=== PATIENT | female | born 1970 | race Caucasian/White ===

== ENCOUNTER → 2019-10-31 | Outpatient (CLI) | payer OTHER, SELFPAY ==
[2019-10-31 09:41] VITALS: BMI 26.2
[2019-11-04 15:58] LABS: HPV APTIMA, High Risk Negative (Negative)
== END | disposition home or self-care (01) ==
PROVIDERS: PCP Student in an Organized Health Care Education/Training Program; Referring Provider Obstetrics & Gynecology; Visit Provider Obstetrics & Gynecology
DX: Z12.4 Encounter for screening for malignant neoplasm of cervix (principal)
CPT/HCPCS: 87624; 88175; G0145

== ENCOUNTER → 2020-02-19 11:51 | Outpatient (CLI) | payer OTHER, SELFPAY ==
[2019-10-31 09:41] VITALS: BMI 26.2
--- NOTE | 2020-02-19 12:30 | BI_ITS ---
MAMMOGRAPHY - BILATERAL SCREENING REASON FOR EXAM: Female, 49 years old. Routine annual screening examination. PERTINENT HISTORY: Non-contributory. TECHNIQUE: Digital bilateral breast fernando (3D mammographic acquisition) in the CC and MLO projections. 2-D mediolateral oblique (MLO) and craniocaudad (CC) views of both breasts were obtained. CAD: Full Field Digital Mammography with Computer Added Detection was performed. COMPARISON: Comparison is made with prior abdomen examination dated 02/05/2019. FINDINGS: Breast Composition: The breasts are heterogeneously dense, which may obscure small masses. There are no dominant masses or suspicious calcifications. No other significant abnormalities are identified. There has been no significant change since the prior study. BI/SCREEN MAMM (CAD) W/FERNANDO BILAT IMPRESSION: Stable bilateral screening mammogram. Yearly follow-up mammogram recommended. (A) ASSESSMENT CATEGORY: BIRADS Category 1: Negative. A letter regarding these results will be sent to the patient by the facility within 30 days. Approximately 10% of breast cancers are not detected by mammography. A normal mammogram should not delay biopsy of a clinically suspicious abnormality. [id number] Electronically Signed: Peña Penny, at 13:47 EDT , Service support ,
== END ==
PROVIDERS: PCP Student in an Organized Health Care Education/Training Program; Referring Provider Obstetrics & Gynecology; Visit Provider Obstetrics & Gynecology
DX: Z12.31 Encounter for screening mammogram for malignant neoplasm of breast (principal)
CPT/HCPCS: 77063; 77067

== ENCOUNTER → 2021-02-20 09:51 | Outpatient (CLI) | payer OTHER, SELFPAY ==
[2020-10-31 10:41] VITALS: BMI 26.2
--- NOTE | 2021-02-20 09:54 | BI_ITS ---
MAMMOGRAPHY - BILATERAL SCREENING 3-D TOMOSYNTHESIS REASON FOR EXAM: Female, 50 years old. screeninng PERTINENT HISTORY: No significant family history. TECHNIQUE: 2-D mammograms and 3-D Tomosynthesis of the breast (s) were performed. CAD was performed. COMPARISON: 02/19/2020 FINDINGS: The breast composition is composed of scattered fibroglandular density. Scattered benign calcifications are seen. No dense spiculated masses or suspicious microcalcifications are identified. No architectural distortion is identified. There is no skin thickening or retraction. There has been no significant change since the prior study. BI/SCRN MAMM (CAD)W/FERNANDO BILAT IMPRESSION: No mammographic signs of malignancy. Routine yearly mammograms recommended. ASSESSMENT CATEGORY: BIRADS Category 1: Negative. A letter regarding these results will be sent to the patient by the facility within 30 days. FOLLOW UP RECOMMENDATION: Yearly follow up mammogram recommended. (A) Approximately 10% of breast cancers are not detected by mammography. A normal mammogram should not delay biopsy of a clinically suspicious abnormality. Electronically Signed: Yrn Wang MD at 10:50 EDT Tel , Service support ,
== END ==
PROVIDERS: PCP Student in an Organized Health Care Education/Training Program; Referring Provider Obstetrics & Gynecology; Visit Provider Obstetrics & Gynecology
DX: Z12.31 Encounter for screening mammogram for malignant neoplasm of breast (principal)
CPT/HCPCS: 77063; 77067

== ENCOUNTER → 2023-01-15 | Outpatient (CLI) | payer OTHER, SELFPAY | END | disposition home or self-care (01) | LOC: OPBI 11:01 | PROVIDERS: PCP Student in an Organized Health Care Education/Training Program; Referring Provider Obstetrics & Gynecology; Visit Provider Obstetrics & Gynecology | DX: Z00.00 Encounter for general adult medical examination without abnormal findings (principal) ==

== ENCOUNTER → 2023-07-12 | Outpatient (CLI) | payer OTHER, SELFPAY ==
--- NOTE | 2023-07-12 09:12 | BI_ITS ---
MAMMOGRAPHY - BILATERAL SCREENING REASON FOR EXAM: Female, 52 years old. Routine annual screening examination. PERTINENT HISTORY: Non-contributory. TECHNIQUE: Digital bilateral breast fernando (3D mammographic acquisition) in the CC and MLO projections. 2-D mediolateral oblique (MLO) and craniocaudad (CC) views of both breasts were obtained. CAD: Full Field Digital Mammography with Computer Added Detection was performed. COMPARISON: Comparison is made with prior outside examination dated May 07, 2022. FINDINGS: Breast Composition: The breasts are heterogeneously dense, which may obscure small masses. Questionable faint nodular density seen on the craniocaudad view in the deep medial portion of the left breast. The patient will be recalled for additional views including compression spot views of the left breast as well as 90 degree lateral view No other significant abnormalities are identified. BI/SCRN MAMM (CAD)W/FERNANDO BILAT IMPRESSION: Asymmetrical density seen on the cranial cavity of view in the deep medial portion of the left breast. The patient will be recalled for additional views including compressive craniocaudad views and 90 degree lateral view of the left breast. Recall Side: Left Breast ASSESSMENT CATEGORY: BIRADS Category 0: Incomplete. Need additional imaging evaluation. A letter regarding these results will be sent to the patient by the facility within 30 days. Approximately 10% of breast cancers are not detected by mammography. A normal mammogram should not delay biopsy of a clinically suspicious abnormality. [id number] Electronically Signed: Peña Penny MD at 10:50 EST ,
--- OUTSIDE RECORDS SUMMARY | 2023-07-12 09:34 | XMS RPT_ITS | CCD ---
Author Name Unknown Address [address] [place] [address] Organization [facility] Care Team Providers Care Cad Programmer Name Role Phone Yola Christianson MD Unavailable [phone] Unruly Mcgrath DO Primary Care Provider Unruly Mcgrath DO Primary Care Provider Unruly Mcgrath DO Primary Care Provider UNRULY MCGRATH Primary Care Unavailable SHORTY RUIZ Attending Unavailable Medications Current Medications Medication Drug Class(es) Dates Sig (Normalized) Sig (Original) cyclobenzaprine hydrochloride 10 mg oral tablet (5 sources) Muscle Relaxant Start: 03-30-2022 End: 04-29-2022 take 1 tablet by mouth three times daily as needed for muscle spasms cyclobenzaprine (FLEXERIL) 10 mg tablet Indications: Costochondral chest pain Take 1 tablet by mouth three times daily as needed for muscle spasm. 30 tablet 0 03/30/2022 04/29/2022 Active Completed/Discontinued Medications Medication Drug Class(es) Dates Sig (Normalized) Sig (Original) [id number] 200 actuat albuterol 0.09 mg/actuat metered dose inhaler (20 sources) beta2-Adrenergic Agonist Start: 12-05-2020 End: 04-11-2023 albuterol (PROVENTIL) 2.5 mg /3 mL (0.083 %) nebulizer solution Indications: Asthma, exercise induced , Asthma, moderate persistent, poorly-controlled inhale contents of 1 vial in nebulizer OVER 5 TO 15 MINUTES every 4 hours if needed for wheezing or shortness of breath 75 mL 11 04/11/2023 Active Problems Active Problems Problem Classification Problem Date Documented Da te Episodic/Chronic Adjustment disorders (2 sources) Stress; Translations: [Reaction to severe stress, unspecified] Chronic Anxiety disorders (6 sources) Insomnia disorder related to another mental disorder; Translations: [Anxiety disorder, unspecified] Onset: 07-13-2022 Chronic Asthma (20 sources) Exercise-induced asthma; Translations: [Exercise induced bronchospasm] Onset: 04-27-2015 Chronic Nonspecific chest pain (1 source) Anterior chest wall pain; Translations: [Other chest pain] Episodic Nutritional deficiencies (1 source) Vitamin D deficiency; Translations: [Vitamin D deficiency, unspecified] Chronic Other connective tissue disease (1 source) Spasm; Translations: [Other muscle spasm] Episodic Other female genital disorders (2 sources) Abnormal uterine and vaginal bleeding, unspecified; Translations: [Abnormal uterine and vaginal bleeding, unspecified] Onset: 01-07-2017 01-07-2017 Chronic Other non-traumatic joint disorders (3 sources) Pain in left knee; Translations: [Pain in joint, lower leg] Episodic Other screening for suspected conditions (not mental disorders or infectious disease) (2 sources) Patient encounter status; Translations: [Encounter for screening mammogram for malignant neoplasm of breast] Episodic Past or Other Problems Problem Classification Problem Date Documented Da te Episodic/Chronic Other skin disorders (20 sources) Actinic keratosis; Translations: [Actinic keratosis] Onset: 04-01-2019 04-01-2019 Episodic Other upper respiratory disease (20 sources) Vocal cord dysfunction; Translations: [Other diseases of vocal cords] Onset: 01-30-2016 01-30-2016 Episodic Results Test Name Value Interpretation Reference Range Facil ity Vital Signs Date Time Vital Sign Value Performing Clinician Malik rodriguez 03-30-2022 10:47-0400 Body weight 64.14 kg Doris Rebolledo APRN.FERMENTING CELLARS RECEIVER Work Phone: [facility] 03-30-2022 10:47-0400 Diastolic blood pressure 60 mm[Hg] Doris Rebolledo CEMENTER.FERMENTING CELLARS RECEIVER Work Phone: [facility] 03-30-2022 10:47-0400 Heart rate 70 /min Doris Rebolledo CEMENTER.FERMENTING CELLARS RECEIVER Work Phone: [facility] 03-30-2022 10:47-0400 Respiratory rate 14 /min Doris Rebolledo CEMENTER.FERMENTING CELLARS RECEIVER Work Phone: [facility] 03-30-2022 10:47-0400 SaO2% (BldA) [Mass fraction] 100 % Dorischarles Rebolledo CEMENTER.FERMENTING CELLARS RECEIVER Work Phone: [facility] 03-30-2022 10:47-0400 Systolic blood pressure 100 mm[Hg] Doris Rebolledo CEMENTER.FERMENTING CELLARS RECEIVER Work Phone: [facility] 01-19-2022 10:00-0400 Body height 154.9 cm Namita Infopia PA-C Work Phone: [facility] 01-19-2022 10:00-0400 Body weight 63.96 kg Namita Samaniego PA-C Work Phone: [facility] 12-06-2021 10:43-0400 Body height 155.5 cm Unruly Mcgrath DO Work Phone: [facility] 12-06-2021 10:43-0400 Body temperature 97.59 [degF] Unruly Mcgrath DO Work Phone: [facility] 12-06-2021 10:43-0400 Body weight 63.96 kg Unruly Mcgrath DO Work Phone: [facility] 12-06-2021 10:43-0400 Diastolic blood pressure 80 mm[Hg] Unruly Mcgrath DO Work Phone: [facility] 12-06-2021 10:43-0400 Heart rate 60 /min Unruly Mcgrath DO Work Phone: [facility] 12-06-2021 10:43-0400 Respiratory rate 12 /min Unruly Mcgrath DO Work Phone: [facility] 12-06-2021 10:43-0400 Systolic blood pressure 112 mm[Hg] Unruly Mcgrath DO Work Phone: [facility] 01-07-2017 15:52-0400 BMI (Body Mass Index) 27.43 kg/m2 Yola Christianson MD [facility] 01-07-2017 15:52-0400 BP Diastolic 77 mm[Hg] Yola Christianson MD [facility] 01-07-2017 15:52-0400 BP Systolic 118 mm[Hg] Yola Christianson MD [facility] 01-07-2017 15:52-0400 Height 157.48 cm Yola Christianson MD [facility] 01-07-2017 15:52-0400 Pulse (Heart Rate) 79 /min Yola Christianson MD [facility] 01-07-2017 15:52-0400 Respiratory Rate 18 /min Yola Christianson MD [facility] 01-07-2017 15:52-0400 Weight 68.04 kg Yola Christianson MD [facility] Encounters Encounter Date Encounter Type Care Provider Facility Start: 06-12-2023 ambulatory Unruly mcgraw DO Work Phone: [facility] [place] Start: 04-11-2023 Refill Unruly mgcraw DO Work Phone: [facility] [place] Procedures Date Procedure Procedure Detail Performing Clinician Start: 05-07-2022 Mammography Mammograph y Coordinator Start: 03-30-2022 Ecg routine ecg w/le ast 12 lds w/i&r [facility] Provider Start: 01-19-2022 Radiologic exam knee complete 4/more views Namita Samaniego PA-C Work Phone: Start: 12-06-2021 Adult depression screening assessment Unruly Mcgrath DO Work Phone: Start: 02-20-2021 Mammography Unruly Bowser rison DO Work Phone: Start: 12-30-2020 Colonoscopy Unruly trinidad DO Work Phone: Start: 04-28-2015 Lipid 1996 panel - S anju or Plasma Unruly Mcgrath DO Work Phone: Plan of Treatment Date Care Activity Detail Author Start: 12-30-2030 Colonoscopy [address] [facility] Start: 12-30-2030 COLORECTAL CANCER SCREENING COLORECTAL CANCER SCREENING [facility] Start: 12-30-2030 Screening for malign ant neoplasm of colon [facility] Start: 01-28-2029 Urine microalbumin profile [facility] Start: 10-30-2024 HPV TESTING HPV TESTING [facility] Start: 10-30-2024 PAP TESTING PAP TESTING [facility] Start: 10-30-2024 Screening for malign ant neoplasm of cervix [facility] Start: 09-06-2024 DIABET[facility]CREEN [facility] Start: 09-06-2024 Diabetes Screening Diabetes Screenin g [facility] Start: 05-07-[address] [facility] Start: 05-07-2023 Screening for malign ant neoplasm of breast Mammogram Screening [facility] Start: 03-30-2023 ANNUAL PCP TEAM IDENTITY MANAGEMENT DEVELOPER KYRA DISEASE VISIT ANNUAL PCP TEAM CHRONIC DISEASE VISIT [facility] Start: 02-22-2023 Influenza vaccination C [facility] Start: 12-21-2022 Influenza vaccination INFLUENZA (#1) [facility] Immunizations Immunization Date Immunization Notes Care Provider Fa mohit 01-30-2021 zoster vaccine recombinant Unruly Mcgrath DO Work Phone: [facility] Work Phone: 12-05-2020 zoster vaccine recombinant Unruly Mcgrath DO Work Phone: [facility] Work Phone: 01-28-2019 tetanus toxoid, redu jonh diphtheria toxoid, and acellular pertussis vaccine, adsorbed Unruly Mcgrath DO Work Phone: [facility] Work Phone: Payers Date Payer Category Payer Unknown [id number] 2013 Unknown MMO MMO [employer] [id number] 2013-Present [phone] [address] [place] [address] PPO [id number] 2013 Unknown [id number] Social History Date Type Detail Facility Start: 03-30-2022 Tobacco smoking stat us NJIS Never smoked tobacco [facility] Start: 09-06-2021 End: 11-11-2022 Alcohol intake Current drinker of alcohol (finding) [facility] Start: 09-06-2021 End: 07-07-2022 Alcohol intake [facility] Start: 10-24-2019 End: 01-20-2020 History SDOH Alcohol Frequency [address] [facility] Start: 10-24-2019 End: 01-20-2020 History SDOH Alcohol Std Drinks [address] [facility] Start: 12-30-2020 History SDOH Alcohol Comment every night. [facility] Start: 10-24-2019 End: 01-20-2020 History SDOH Social Connections Phone [address] [facility] Start: 10-24-2019 History SDOH Social Connections Living [address] [facility] Start: 10-24-2019 History SDOH Physica l Activity DPW [address] [facility] Start: 01-20-2020 History SDOH Physica l Activity MPS [address] [facility] Start: 10-24-2019 End: 06-28-2021 History SDOH Transport Med [address] [facility] Start: 01-20-2020 Education [address] [facility] Start: 1970 Sex Assigned At Female C [facility] Start: 11-26-2021 End: 03-30-2022 Exposure to SARS-CoV-2 (event) Not sure [facility] Work Phone: Start: 03-30-2022 Tobacco use and exposure Smokeless tobacco non-user [facility] Start: 05-04-2022 End: 07-07-2022 Tobacco use panel [facility] Adult Depression Screening Assessment [address] [facility] Start: 11-30-2020 Gender identity Identifies as female gender (finding) [facility] Start: 11-30-2020 Sexual orientation Heterosexual (fin ding) [facility] How often to you hav e a drink containing alcohol? 2-3 time sa week [facility] How many standard drinks containing alcohol do you have on a typical day? 1 or [address] [facility] How hard is it for y ou to pay for the very basics like food, housing, medical care, and heating Not very hard [facility] Do you feel stress - tense, restless, nervous, or anxious, or unable to sleep at night because your mind is troubled all the time - these days [OSQ] Rather much [facility] (I/We) worried whemargret er (my/our) food would run out before (I/we) got money to buy more. Never true [facility] In the past 12 month s, was there a time when you were not able to pay the mortgage or rent on time? No [facility] Clinical Notes 11-05-2016 to 06-12-2023 Telephone Encounter - Vivaine Christine PA-C - 04/11/2023 11:49 AM EDTTelephone Encounter - Ledy Grider LPN - 04/11/2023 8:54 AM Ara Ruiz APRN.KAMARI - 07/13/2022 3:31 PM EST Note Date & Type Note Facility 06-12-2023 Note Patient Outreach (IN [facility]) CORNELIO NAPIER ([id number]) 1970 F Date Time Provider Department 06/12/23 UNRULY MCGRATH During your visit today, we recorded the following information about you: Allergies As of Date: 06/12/2023 (No Known Allergies) Date Reviewed: 07/13/2022 Reviewed by: Kirsty Colvin LPN - Fully Assessed Visit Diagnosis:Encounter for screening mammogram for breast cancer [Z12.31] Order(s):[facility] SCREENING W FERNANDO [[id number]] Order #: [id number] FUTURE Prescriptions as of 06/17/2023 - benzonatate (TESSALON PERLE) 100 mg capsule Take 1 capsule by mouth three times a day as needed. - guaiFENesin (MUCINEX) 600 mg 12 hr tablet Take 2 tablets by mouth two times a day. - albuterol (PROVENTIL) 2.5 mg /3 mL (0.083 %) nebulizer solution inhale contents of 1 vial in nebulizer OVER 5 TO 15 MINUTES every 4 hours if needed for wheezing or shortness of breath - albuterol HFA (VENTOLIN HFA) 90 mcg/actuation inhaler Inhale 2 Puffs as instructed every 4 hours as needed for wheezing/shortness of breath. - fluticasone-salmeterol (ADVAIR, WIXELA) 250-50 mcg/dose inhaler Inhale 1 Puff as instructed two times a day. - fluticasone (FLONASE) 50 mcg/actuation nasal spray Use 2 Sprays in each nostril once daily. Rinse mouth after use. - cephALEXin (KEFLEX) 500 mg capsule Take 1 capsule by mouth once daily as needed. Following intercourse - montelukast (SINGULAIR) 10 mg tablet Take 1 tablet by mouth daily at bedtime. - escitalopram oxalate (LEXAPRO) 10 mg tablet take 1 tablet by mouth once daily - Norethindrone-Eth Estradiol (OVCON-35) 0.4-35 mg-mcg per tablet Take 1 tablet by mouth once daily. - ibuprofen (MOTRIN) 600 mg tablet Take 1 tablet by mouth every 6 hours as needed. - FERROUS SULFATE (IRON ORAL) Take by mouth once daily. - Nebulizer 1 Device every 4 hours as needed (dyspnea). J45.4, NEBULIZER FOR HOME USE. 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 Requested Prescriptions Signed Prescriptions Disp Refills albuterol (PROVENTIL) 2.5 mg /3 mL (0.083 %) nebulizer solution 75 mL 11 Sig: inhale contents of 1 vial in nebulizer OVER 5 TO 15 MINUTES every 4 hours if needed for wheezing or shortness of breath albuterol HFA (VENTOLIN HFA) 90 mcg/actuation inhaler 36 g 3 Sig: Inhale 2 Puffs as instructed every 4 hours as needed for wheezing/shortness of breath. fluticasone-salmeterol (ADVAIR, WIXELA) 250-50 mcg/dose inhaler 1 Each 5 Sig: Inhale 1 Puff as instructed two times a day. fluticasone (FLONASE) 50 mcg/actuation nasal spray 3 Each 3 Sig: Use 2 Sprays in each nostril once daily. Rinse mouth after use. Viviane Christine PA-C documented in this encounter [facility] 04-11-2023 Miscellaneous Notes marietta- 03/30/22 Nov--nothing scheduled Last refill--07/10/21 90 with 2 refills Last labs--09/06/21 documented in this encounter [facility] 03-04-2023 Miscellaneous Notes Patient has been identified by name and date of : Patient phones for refill(s): Requested Prescriptions Pending Prescriptions Disp Refills cephALEXin (KEFLEX) 500 mg capsule 20 capsule 2 Sig: Take 1 capsule by mouth once daily as needed. Following intercourse Date of last office visit in primary care: 03/30/22 Last 2 Encounter Wt Readings: Date: Wt: 03/30/2022 64.1 kg (141 lb 6.4 oz) 01/19/2022 64 kg (141 lb) Previous labs/tests for medication: Not applicable Please advise. Thank you. Niesha Wayne LPN documented in this encounter [facility] 01-02-2023 Miscellaneous Notes Patient has been identified by name and date of : Patient phones for refill(s): Requested Prescriptions Pending Prescriptions Disp Refills montelukast (SINGULAIR) 10 mg tablet 90 tablet 3 Sig: Take 1 tablet by mouth daily at bedtime. Date of last office visit in primary care: 03/30/22 Last 2 Encounter Wt Readings: Date: Wt: 03/30/2022 64.1 kg (141 lb 6.4 oz) 01/19/2022 64 kg (141 lb) Previous labs/tests for medication: Not applicable Please advise. Thank you. Niesha Wayne LPN documented in this encounter [facility] 10-11-2022 Miscellaneous Notes Last appointment: 09/07/2022 documented in this encounter [facility] 07-13-2022 Note HNO ID: [id number] Author: Shorty Ruiz APRN.FERMENTING CELLARS RECEIVER Service: ? Author Type: Nurse Practitioner Type: Progress Notes Filed: 07/20/2022 10:19 PM Note Text: PSYC FOLLOW UP - PSYCHIATRIC PROGRESS NOTE DIAGNOSIS: Chronic PTSD None GAF: -70-61 Some mild symptoms or some difficulty in social, occupational, or school functioning, but generally functioning pretty well. TREATMENT PLAN: Continue Lexapro at the same dose. Increase Hydroxyzine dose at bedtime to see if it helps more with her sleep difficulties. Continue trauma focused therapy. Follow up in 2 months The effects and side effects of all the medications were reviewed in detail with the patient. She is in agreement with the treatment plan and aware to reach out with any questions, concerns, or worsening of symptoms prior to the next appointment. CC: Follow up regarding her anxiety and sleep With the patient consent, visit was performed virtually. HPI: Cornelio Napier is a 51 year old Female with a history of PTSD presenting today for follow-up. Date of last visit: 06/08/2022 Plan from last visit: Restart and take Lexapro in the morning so that it does not impact her sleep. Utilize hydroxyzine to help with her sleep difficulties. Continue to engage in trauma focused therapy weekly. Follow up in 4 to 6 weeks. Today Cornelio shares that she has been doing okay. She has noticed an improved mindset since she went on vacation during . Has tolerated Lexapro better during the day. She has tried hydroxyzine but only at 25 mg dose. She is willing to try a higher dose of the hydroxyzine to address her sleep. Currently she feels that anxiety is more manageable with the current dose of Lexapro. She has not recently been triggered by her ex. She has been engaged in trauma focused therapy weekly. So far she has met with the therapist 3 times. Has an appointment next . She has been connecting well with the therapist. Denies any concerns with physical health. She takes care of herself and works out. Interval Progress: Improved Risks and benefits of the medication, including any black box warnings, were discussed with the patient. Social History: See HPI PATIENT DATA: Generalized Anxiety Disorder Scale (YADIRA-7) YADIRA - 7 SCORES 04/27/2022 06/08/2022 YADIRA-7 Score 17 13 (0-4) minimal anxiety, (5-9) mild anxiety, (10-14) moderate anxiety, (15-21) severe anxiety Patient Health Questionnaire (PHQ-9) PHQ-9 04/27/2022 06/08/2022 07/13/2022 Score 12 11 9 (0-4) minimal depression, (5-9) mild depression, (10-14) moderate depression, (15-19) moderately severe depression, (20-27) severe depression ROS: General: Negative for fever, malaise, unintentional weight loss HEENT: Negative for recent changes in vision or hearing, no nasal drainage Respiratory: Negative for cough, wheezing or SOB Cardiovascular: Negative for chest pain GI: Negative for nausea, vomiting, change in bowel habits MUSCULOSKELETAL: Negative for acute back or joint pain SKIN: Negative for rash NEURO: Negative for headaches, seizures, focal neurological deficits All other systems negative. VITAL SIGNS: BP Temp Pulse Resp SpO2 MENTAL STATUS EXAMINATION: Appearance: Appropriately groomed, appears stated age Behavior: Appropriately engaged Psychomotor: No psychomotor agitation Cognition Level of Consciousness: Awake and alert. No fluctuation in wakefulness. Orientation: Grossly oriented Memory: Intact Attention/Concentration: Good Fund of Knowledge: Able to demonstrate an awareness of current events. Mood: Mildly anxious Affect: Congruent to mood Speech/Language: Appropriate tone, prosody, thomas, phonetics, and syntax Thought Form: Goal-directed. No loosening of associations. Thought Content: No delusions noted or endorsed. Perceptual Disturbances: Did not appear to respond to auditory stimuli. Safety: Suicidal Ideations: No suicidal ideation, intent or plan. Homicidal Ideations: No homicidal ideation, intent or plan. Insight: Appropriate Judgment: Appropriate I spent a total of 28 minutes on the date of the service which included preparing to see the patient, [id number] patient care, completing clinical documentation, and counseling and educating the patient/family/caregiver, ordering medications/labs. Shorty Ruiz APRN.FERMENTING CELLARS RECEIVER July 13, 2022 3:31 PM This note was partially generated using [employer] voice recognition system. Note was reviewed for accuracy. There may be minor misspellings or grammar miscues with [employer] voice recognition. [facility] 07-13-2022 History of Present illness Narrative Images from the original note were not included. PSYC FOLLOW UP - PSYCHIATRIC PROGRESS NOTE DIAGNOSIS: Chronic PTSD None GAF: -70-61 Some mild symptoms or some difficulty in social, occupational, or school functioning, but generally functioning pretty well. TREATMENT PLAN: Continue Lexapro at the same dose. Increase Hydroxyzine dose at bedtime to see if it helps more with her sleep difficulties. Continue trauma focused therapy. Follow up in 2 months The effects and side effects of all the medications were reviewed in detail with the patient. She is in agreement with the treatment plan and aware to reach out with any questions, concerns, or worsening of symptoms prior to the next appointment. CC: Follow up regarding her anxiety and sleep With the patient consent, visit was performed virtually. HPI: Cornelio Napier is a 51 year old Female with a history of PTSD presenting today for follow-up. Date of last visit: 06/08/2022 Plan from last visit: Restart and take Lexapro in the morning so that it does not impact her sleep. Utilize hydroxyzine to help with her sleep difficulties. Continue to engage in trauma focused therapy weekly. Follow up in 4 to 6 weeks. Today Cornelio shares that she has been doing okay. She has noticed an improved mindset since she went on vacation during . Has tolerated Lexapro better during the day. She has tried hydroxyzine but only at 25 mg dose. She is willing to try a higher dose of the hydroxyzine to address her sleep. Currently she feels that anxiety is more manageable with the current dose of Lexapro. She has not recently been triggered by her ex. She has been engaged in trauma focused therapy weekly. So far she has met with the therapist 3 times. Has an appointment next . She has been connecting well with the therapist. Denies any concerns with physical health. She takes care of herself and works out. Interval Progress: Improved Risks and benefits of the medication, including any black box warnings, were discussed with the patient. Social History: See HPI PATIENT DATA: Generalized Anxiety Disorder Scale (YADIRA-7) YADIRA - 7 SCORES 04/27/2022 06/08/2022 YADIRA-7 Score 17 13 (0-4) minimal anxiety, (5-9) mild anxiety, (10-14) moderate anxiety, (15-21) severe anxiety Patient Health Questionnaire (PHQ-9) PHQ-9 04/27/2022 06/08/2022 07/13/2022 Score 12 11 9 (0-4) minimal depression, (5-9) mild depression, (10-14) moderate depression, (15-19) moderately severe depression, (20-27) severe depression ROS: General: Negative for fever, malaise, unintentional weight loss HEENT: Negative for recent changes in vision or hearing, no nasal drainage Respiratory: Negative for cough, wheezing or SOB Cardiovascular: Negative for chest pain GI: Negative for nausea, vomiting, change in bowel habits MUSCULOSKELETAL: Negative for acute back or joint pain SKIN: Negative for rash NEURO: Negative for headaches, seizures, focal neurological deficits All other systems negative. VITAL SIGNS: BP Temp Pulse Resp SpO2 MENTAL STATUS EXAMINATION: Appearance: Appropriately groomed, appears stated age Behavior: Appropriately engaged Psychomotor: No psychomotor agitation Cognition Level of Consciousness: Awake and alert. No fluctuation in wakefulness. Orientation: Grossly oriented Memory: Intact Attention/Concentration: Good Fund of Knowledge: Able to demonstrate an awareness of current events. Mood: Mildly anxious Affect: Congruent to mood Speech/Language: Appropriate tone, prosody, thomas, phonetics, and syntax Thought Form: Goal-directed. No loosening of associations. Thought Content: No delusions noted or endorsed. Perceptual Disturbances: Did not appear to respond to auditory stimuli. Safety: Suicidal Ideations: No suicidal ideation, intent or plan. Homicidal Ideations: No homicidal ideation, intent or plan. Insight: Appropriate Judgment: Appropriate I spent a total of 28 minutes on the date of the service which included preparing to see the patient, [id number] patient care, completing clinical documentation, and counseling and educating the patient/family/caregiver, ordering medications/labs. Shorty Ruiz APRN.CNP July 13, 2022 3:31 PM This note was partially generated using [employer] voice recognition system. Note was reviewed for accuracy. There may be minor misspellings or grammar miscues with [employer] voice recognition. documented in this encounter [facility] 06-08-2022 Instructions Shorty Ruiz APRN.CNP - 06/08/2022 3:33 PM EST Gabriel Grimes, It was good to talk with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 adnexal fullness - ordered diag pap and imaging, cea ca 125 Yola Christianson MD Vaginal mass 10/10/2016 12/20/2016 Overview: Granulation tissue and yeast on biopsy Yola Christianson MD Right apical raw area, right adnexal fullness - ordered diag pap and imaging, cea ca 125 Yola Christianson MD Shortness of breath 01/30/2016 12/21/19 17 documented as of this encounter (statuses as of 04/11/2023) [facility] History of Past illness Narrative* Problem Noted Date Diagnosed Date Resolved Date Elevated cancer antigen 125 (CA-125) 11/05/2016 12/20/2016 Abnormal uterine bleeding 10/10/2016 Overview: Right apical raw area, right adnexal fullness - ordered diag pap and imaging, cbc tsh cea ca 125 Yola Christianson MD Adnexal mass 10/10/2016 10/31/2016 Overview: Right apical raw area, right adnexal fullness - ordered diag pap and imaging, cea ca 125 Yola Christianson MD Vaginal mass 10/10/2016 12/20/2016 Overview: Granulation tissue and yeast on biopsy Yola Christianson MD Right apical raw area, right adnexal fullness - ordered diag pap and imaging, cea ca 125 Yola Christianson MD Shortness of breath 01/30/2016 12/21/19 17 documented as of this encounter (statuses as of 06/17/2023) [facility] Well adult exam- Primary Routine general medical examination at a health care facility Asthma, exercise induced Exercise induced bronchospasm Encounter for screening mammogram for malignant neoplasm of breast Other screening mammogram Insomnia secondary to anxiety Anxiety state, unspecified Situational anxiety Other anxiety states Vitamin D deficiency Unspecified vitamin D deficiency [facility] Diagnosis Acute pain of left knee- Primary [facility]* Diagnosis Left knee pain, unspecified chronicity [facility]* Diagnosis Acute pain of left knee [facility]* Diagnosis Costochondral chest pain- Primary Painful respiration Muscle spasm Spasm of muscle [facility]* Diagnosis Situational stress- Primary Other psychological or physical stress, not elsewhere classified Situational anxiety Other anxiety states [facility]* Diagnosis Situational stress- Primary Other psychological or physical stress, not elsewhere classified [facility]* Diagnosis Chronic post-traumatic stress disorder (PTSD)- Primary [facility]* Diagnosis Asthma, exercise induced Exercise induced bronchospasm documented in this encounter [facility] note* Diagnosis Asthma, exercise induced Exercise induced bronchospasm Asthma, moderate persistent, poorly-controlled Unspecified asthma documented in this encounter [facility] note* Diagnosis Encounter for screening mammogram for breast cancer [facility] Diagnostic Procedure Only (Routine) - Authorized Specialty Diagnoses / Procedures Referred By Daxa chauhan Referred To Contact [facility] Diagnoses Encounter for screening mammogram for malignant neoplasm of breast Procedures JOSE DANIEL SCREENING W FERNANDO SCREENING DIGITAL BREAST TOMOSYNTHESIS BI SCREENING MAMMOGRAPHY BI 2-VIEW BREAST INC Unruly Robles DO [address] [place] [address] [facility] [address] [place] [address] Referral ID Status Reason Start Date Expiration Date Visits Requested Visits Authorized [id number] Authorized Auto-Generat ed Referral 12/06/2021 01/05/2023 1 1 [facility] for referral (narrative)* Diagnostic Procedure Only (Routine) - Closed Specialty Diagnoses / Procedures Referred By Daxa chauhan Referred To Contact XR IMAGING Diagnoses Left knee pain, unspecified chronicity Procedures XR KNEE GENERAL 4V AP BOTH/PA BOTH/LAT/MERC LEFT RADIOLOGIC EXAM KNEE COMPLETE 4/MORE VIEWS Namita Samaniego PA-C [address] [place] [address] Xr Imaging Referral ID Status Reason Start Date Expiration Date V isits Requested Visits Authorized [id number] Closed Auto-Generate d Referral 01/12/2022 02/11/2023 1 1 [facility] for referral (narrative)* Outpatient Procedure (Routine) - Closed Specialty Diagnoses / Procedures Referred By Daxa chauhan Referred To Contact [facility] [place] Diagnoses Costochondral chest pain Procedures ECG COMPLETE ECG ROUTINE ECG W/LEAST 12 LDS W/I&R Doris Rebolledo APRN.CNP [address] [place] [address] [facility] [address] [place] [id number] Referral ID Status Reason Start Date Expiration Date V isits Requested Visits Authorized [id number] Closed Auto-Generate d Referral 03/30/2022 03/30/2023 1 1 [facility] for referral (narrative)* Diagnostic Procedure Only (Routine) - Pending Review Specialty Diagnoses / Procedures Referred By Daxa chauhan Referred To Contact [facility] Diagnoses Encounter for screening mammogram for breast cancer Procedures JOSE DANIEL SCREENING W FERNANDO SCREENING DIGITAL BREAST TOMOSYNTHESIS BI SCREENING MAMMOGRAPHY BI 2-VIEW BREAST INC CAD Unruly Mcgrath DO [address] [place] [address] [facility] [address] [place] [id number] Referral ID Status Reason Start Date Expiration Date Visits Requested Visits Authorized [id number] Pending Review Auto-Generat ed Referral 3 07/11/2024 1 1 [facility] for visit Narrative* Diagnostic Procedure Only (Routine) - Closed Specialty Diagnoses / Procedures Referred By Contac t Referred To Contact XR IMAGING Diagnoses Left knee pain, unspecified chronicity Procedures XR KNEE GENERAL 4V AP BOTH/PA BOTH/LAT/MERC LEFT RADIOLOGIC EXAM KNEE COMPLETE 4/MORE VIEWS Namita Samaniego PA-C [address] [place] [address] Xr Imaging Referral ID Status Reason Start Date Expiration Date V isits Requested Visits Authorized [id number] Closed Auto-Generate d Referral 01/12/2022 02/11/2023 [address] [facility] Advance Directives No Advanced Directives Records FoundDocuments on File Type Date Recorded Patient Hand Pleater Expl anation Advance Directive(s) Advance Directive(s) 12/15/2020 8:41 AM Advance Directive(s) 12/19/2016 8:55 AM Documents on File Type Date Recorded Patient Hand Pleater Expl anation Advance Directive(s) Advance Directive(s) 12/15/2020 8:41 AM Advance Directive(s) 12/19/2016 8:55 AM Reason for Referral Specialty Diagnoses / Procedures Referred By Contac t Referred To Contact Orthopedics Diagnoses Acute pain of left knee Procedures CONSULT TO ORTHOPAEDICS OFFICE/OUTPATIENT [facility] 60-74 MINUTES Unruly Mcgrath, DO [address] [place] [address] Referral ID Status Reason Start Date Expiration Date Visits Requested Visits Authorized [id number] Authorized PCP Requested Referral 12/21/2021 12/21/2022 1 1 Specialty Diagnoses / Procedures Referred By Contac t Referred To Contact Diagnoses Situational stress Situational anxiety Procedures CONSULT TO PSYCHIATRY OFFICE/OUTPATIENT [facility] 60-74 MINUTES Unruly Mcgrath, DO [address] [place] [address] Referral ID Status Reason Start Date Expiration Date Visits Requested Visits Authorized [id number] Pending Review PCP Requested Referral 04/17/2023 1 1 Specialty Diagnoses / Procedures Referred By Contac t Referred To Contact Diagnoses Asthma, exercise induced Viviane Christine PA-C [address] [place] [address] Referral ID Status Reason Start Date Expiration Date Visits Re quested Visits Authorized [id number] Closed 1 1 Summary Purpose Family History No Family History Records FoundNo Family History Records Found Additional Source Comments Source Comments (unrecognize d section and content) In the event this informatio n is protected by the Federal Confidentiality of Alcohol and Drug Abuse Patient Records regulations: The Federal rules restrict any use of the information to criminally investigate or prosecute any alcohol or drug abuse patient.[facility] the event this information is protected by the Federal Confidentiality of Alcohol and Drug Abuse Patient Records regulations: The Federal rules restrict any use of the information to criminally investigate or prosecute any alcohol or drug abuse patient.[facility] the event this information is protected by the Federal Confidentiality of Alcohol and Drug Abuse Patient Records regulations: The Federal rules restrict any use of the information to criminally investigate or prosecute any alcohol or drug abuse patient.[facility] the event this information is protected by the Federal Confidentiality of Alcohol and Drug Abuse Patient Records regulations: The Federal rules restrict any use of the information to criminally investigate or prosecute any alcohol or drug abuse patient.[facility] the event this information is protected by the Federal Confidentiality of Alcohol and Drug Abuse Patient Records regulations: The Federal rules restrict any use of the information to criminally investigate or prosecute any alcohol or drug abuse patient.[facility] the event this information is protected by the Federal Confidentiality of Alcohol and Drug Abuse Patient Records regulations: The Federal rules restrict any use of the information to criminally investigate or prosecute any alcohol or drug abuse patient.[facility] the event this information is protected by the Federal Confidentiality of Alcohol and Drug Abuse Patient Records regulations: The Federal rules restrict any use of the information to criminally investigate or prosecute any alcohol or drug abuse patient.[facility] the event this information is protected by the Federal Confidentiality of Alcohol and Drug Abuse Patient Records regulations: The Federal rules restrict any use of the information to criminally investigate or prosecute any alcohol or drug abuse patient.[facility] the event this information is protected by the Federal Confidentiality of Alcohol and Drug Abuse Patient Records regulations: The Federal rules restrict any use of the information to criminally investigate or prosecute any alcohol or drug abuse patient.[facility] the event this information is protected by the Federal Confidentiality of Alcohol and Drug Abuse Patient Records regulations: The Federal rules restrict any use of the information to criminally investigate or prosecute any alcohol or drug abuse patient.[facility] the event this information is protected by the Federal Confidentiality of Alcohol and Drug Abuse Patient Records regulations: The Federal rules restrict any use of the information to criminally investigate or prosecute any alcohol or drug abuse patient.[facility] the event this information is protected by the Federal Confidentiality of Alcohol and Drug Abuse Patient Records regulations: The Federal rules restrict any use of the information to criminally investigate or prosecute any alcohol or drug abuse patient.[facility] the event this information is protected by the Federal Confidentiality of Alcohol and Drug Abuse Patient Records regulations: The Federal rules restrict any use of the information to criminally investigate or prosecute any alcohol or drug abuse patient.[facility] the event this information is protected by the Federal Confidentiality of Alcohol and Drug Abuse Patient Records regulations: The Federal rules restrict any use of the information to criminally investigate or prosecute any alcohol or drug abuse patient.[facility] the event this information is protected by the Federal Confidentiality of Alcohol and Drug Abuse Patient Records regulations: The Federal rules restrict any use of the information to criminally investigate or prosecute any alcohol or drug abuse patient.[facility] the event this information is protected by the Federal Confidentiality of Alcohol and Drug Abuse Patient Records regulations: The Federal rules restrict any use of the information to criminally investigate or prosecute any alcohol or drug abuse patient.[facility] the event this information is protected by the Federal Confidentiality of Alcohol and Drug Abuse Patient Records regulations: The Federal rules restrict any use of the information to criminally investigate or prosecute any alcohol or drug abuse patient.[facility] the event this information is protected by the Federal Confidentiality of Alcohol and Drug Abuse Patient Records regulations: The Federal rules restrict any use of the information to criminally investigate or prosecute any alcohol or drug abuse patient.[facility] the event this information is protected by the Federal Confidentiality of Alcohol and Drug Abuse Patient Records regulations: The Federal rules restrict any use of the information to criminally investigate or prosecute any alcohol or drug abuse patient.[facility]In the event this information is protected by the Federal Confidentiality of Alcohol and Drug Abuse Patient Records regulations: The Federal rules restrict any use of the information to criminally investigate or prosecute any alcohol or drug abuse patient.[facility] the event this information is protected by the Federal Confidentiality of Alcohol and Drug Abuse Patient Records regulations: The Federal rules restrict any use of the information to criminally investigate or prosecute any alcohol or drug abuse patient.[facility] the event this information is protected by the Federal Confidentiality of Alcohol and Drug Abuse Patient Records regulations: The Federal rules restrict any use of the information to criminally investigate or prosecute any alcohol or drug abuse patient.[facility] the event this information is protected by the Federal Confidentiality of Alcohol and Drug Abuse Patient Records regulations: The Federal rules restrict any use of the information to criminally investigate or prosecute any alcohol or drug abuse patient.[facility] the event this information is protected by the Federal Confidentiality of Alcohol and Drug Abuse Patient Records regulations: The Federal rules restrict any use of the information to criminally investigate or prosecute any alcohol or drug abuse patient.[facility] Reason for Visit (unrecogniz ed section and content) Reason Comments Patient Question copied from [employer] Reason Comments New Knee Pain Specialty Diagnoses / Procedures Referred By Daxa chauhan Referred To Contact Orthopedics Diagnoses Acute pain of left knee Procedures CONSULT TO ORTHOPAEDICS OFFICE/OUTPATIENT NEW HIGH MDM 60-74 MINUTES Unruly Mcgrath, DO [address] [place] [address] Referral ID Status Reason Start Date Expiration Date V isits Requested Visits Authorized [id number] Closed PCP Requested Referral 12/21/2021 12/21/2022 1 1 Reason Comments Patient Update Reason Comments Chest Pain Rt sided chest tight ness and soreness and pain started 2-3 months ago no sob or nausea when happens.Feels through her back at times Reason Comments Referral Request Reason Comments Behavioral Health Social Work Reason Comments Refill Request Reason Comments Follow Up Reason Onset Date Comments Refill Request 01/02/2023 Reason Onset Date Comments Refill Request 03/02/2023 Reason Onset Date Comments Refill Request 04/11/2023 Care Teams (unrecognized sec tion and content) Cad Programmer Relationship Specialty Start Date End Date Unruly Mcgrath, DO [address] [place] [address] PCP - General Family Practice 04/27/15 Cad Programmer Relationship Specialty Start Date End Date Mcgrath, Unruly L, DO [address] [place] [address] PCP - General Family Practice 04/27/15 Cad Programmer Relationship Specialty Start Date End Date Unruly Mcgrath, DO [address] [place] [address] PCP - General Family Practice 04/27/15 Cad Programmer Relationship Specialty Start Date End Date Unruly Mcgrath, DO [address] [place] [address] PCP - General Family Practice 04/27/15 Cad Programmer Relationship Specialty Start Date End Date Unruly Mcgrath, DO [address] [place] [address] PCP - General Family Practice 04/27/15 Cad Programmer Relationship Specialty Start Date End Date Unruly Mcgrath, DO [address] [place] [address] PCP - General Family Medicine 04/27/15 Cad Programmer Relationship Specialty Start Date End Date Unruly Mcgrath, DO [address] [place] [address] PCP - General Family Medicine 04/27/15 Cad Programmer Relationship Specialty Start Date End Date Unruly Mcgrath, DO [address] [place] [address] PCP - General Family Medicine 04/27/15 Cad Programmer Relationship Specialty Start Date End Date Unruly Mcgrath, DO [address] [place] [address] PCP - General Family Medicine 04/27/15 Cad Programmer Relationship Specialty Start Date End Date Unruly Mcgrath, DO [address] [place] [address] PCP - General Family Medicine 04/27/15 Cad Programmer Relationship Specialty Start Date End Date Unruly Mcgrath, DO [address] [place] [address] PCP - General Family Medicine 04/27/15 Cad Programmer Relationship Specialty Start Date End Date Unruly Mcgrath DO [address] [place] [address] PCP - General Family Medicine 04/27/15 Cad Programmer Relationship Specialty Start Date End Date Unruly Mcgrath DO [address] [place] [address] PCP - General Family Medicine 04/27/15 Cad Programmer Relationship Specialty Start Date End Date Unruly Mcgrath DO [address] [place] [address] PCP - General Family Medicine 04/27/15 Cad Programmer Relationship Specialty Start Date End Date Unruly Mcgrath DO [address] [place] [address] PCP - General Family Medicine 04/27/15 Cad Programmer Relationship Specialty Start Date End Date Unruly Mcgrath DO [address] [place] [address] PCP - General Family Medicine 04/27/15 Cad Programmer Relationship Specialty Start Date End Date Unruly Mcgrath DO [address] [place] [address] PCP - General Family Medicine 04/27/15 Cad Programmer Relationship Specialty Start Date End Date Unruly Mcgrath DO [address] [place] [address] PCP - General Family Medicine 04/27/15 INFORMATION SOURCE (unrecogn ized section and content) DATE CREATED AUTHOR AUTHOR'S BHAVYA ATION 06/19/2023 [facility] FOR RECORDS PERTAINING TO PATIENTS WHO ARE OR HAVE BEEN ENROLLED IN A CHEMICAL DEPENDENCY/SUBSTANCEABUSE PROGRAM, SOME INFORMATION MAY BE OMITTED. This clinical summary was aggregated from multiple sources. Caution should be exercised in using it in the provision of clinical care. This summary normalizes information from multiple sources, and as a consequence, information in this document may materially change the coding, format and clinical context of patient data. In addition, data may be omitted in some cases. CLINICAL DECISIONS SHOULD BE BASED ON THE PRIMARY CLINICAL RECORDS. [employer] [facility]. provides no warranty or guarantee of the accuracy or completeness of information in this document.
== END | disposition home or self-care (01) ==
LOC: OPBI 09:11
PROVIDERS: PCP Student in an Organized Health Care Education/Training Program; Referring Provider Obstetrics & Gynecology; Visit Provider Obstetrics & Gynecology
DX: Z12.31 Encounter for screening mammogram for malignant neoplasm of breast (principal)
CPT/HCPCS: 77063; 77067

== ENCOUNTER → 2023-07-26 | Outpatient (CLI) | payer OTHER, SELFPAY ==
--- NOTE | 2023-07-26 09:23 | BI_ITS ---
MAMMOGRAPHY - UNILATERAL DIAGNOSTIC: LEFT BREAST REASON FOR EXAM: Female, 52 years old. Asymmetrical density. PERTINENT HISTORY: Non-contributory. TECHNIQUE: Compression spot views of the left breast in the mediolateral oblique and craniocaudad views were obtained. 90 degree lateral view was obtained as well. CAD: Full Field Digital Mammography with Computer Added Detection was performed. COMPARISON: Comparison is made with prior study dated July 12, 2023. FINDINGS: Breast Composition: The breasts are heterogeneously dense, which may obscure small masses. There are no dominant masses or suspicious calcifications. No other significant abnormalities are identified. BI/DIAG MAMM W/CAD, UNILAT IMPRESSION: Negative unilateral diagnostic mammogram. Yearly followup mammogram recommended. (A) ASSESSMENT CATEGORY: BIRADS Category 1: Negative. A letter regarding these results will be sent to the patient by the facility within 30 days. Approximately 10% of breast cancers are not detected by mammography. A normal mammogram should not delay biopsy of a clinically suspicious abnormality. Electronically Signed: Peña Penny MD at 10:18 EST ,
--- OUTSIDE RECORDS SUMMARY | 2023-07-26 12:06 | XMS RPT_ITS | CCD ---
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 Problem [...] of this encounter (statuses as of 07/21/2022) [facility] Narrative* Problem [...] of this encounter (statuses as of 10/12/2022) [facility] Narrative* Problem [...] of this encounter (statuses as of 01/03/2023) [facility] Narrative* Problem [...] of this encounter (statuses as of 03/04/2023) [facility] Narrative* Problem [...] of this encounter (statuses as of 04/11/2023) [facility] Narrative* Problem [...] of this encounter (statuses as of 04/11/2023) [facility] Narrative* Problem [...] of this encounter (statuses as of 06/17/2023) [facility] Diagnosis Well adult exam- Primary Routine general medical examination at a health care facility Asthma, exercise induced Exercise induced bronchospasm Encounter for screening mammogram for malignant neoplasm of breast Other screening mammogram Insomnia secondary to anxiety Anxiety state, unspecified Situational anxiety Other anxiety states Vitamin D deficiency Unspecified vitamin D deficiency [facility] Acute pain of left knee- Primary [facility] Diagnosis Left knee pain, unspecified chronicity [facility] Acute pain of left knee [facility] Diagnosis Costochondral chest pain- Primary Painful respiration Muscle spasm Spasm of muscle [facility] Diagnosis Situational stress- Primary Other psychological or physical stress, not elsewhere classified Situational anxiety Other anxiety states documented in this encounter [facility] note* Diagnosis Situational stress- Primary Other psychological or physical stress, not elsewhere classified documented in this encounter [facility] note* Diagnosis Chronic post-traumatic stress disorder (PTSD)- Primary documented in this encounter [facility] note* Diagnosis Asthma, exercise induced Exercise induced bronchospasm documented in this encounter [facility] note* Diagnosis Asthma, exercise induced Exercise induced bronchospasm Asthma, moderate persistent, poorly-controlled Unspecified asthma documented in this encounter [facility] note* Diagnosis Encounter for screening mammogram for breast cancer documented in this encounter [facility] for referral (narrative)* Diagnostic Procedure Only (Routine) - Authorized Specialty Diagnoses / Procedures Referred By Daxa chauhan Referred To Contact [facility] Diagnoses Encounter for screening mammogram for malignant neoplasm of breast Procedures JOSE DANIEL SCREENING W FERNANDO SCREENING DIGITAL BREAST TOMOSYNTHESIS BI SCREENING MAMMOGRAPHY BI 2-VIEW BREAST INC CAD Unruly Mcgrath DO [address] [place] [address] [facility] [address] [place] [address] Referral ID Status Reason Start Date Expiration Date Visits Requested Visits Authorized [id number] Authorized Auto-Generat ed Referral 12/06/2021 01/05/2023 1 1 [facility] for referral (narrative)* Diagnostic Procedure Only (Routine) - Closed Specialty Diagnoses / Procedures Referred By Daxa chauhan Referred To Contact [facility] IMAGING Diagnoses Left knee pain, unspecified chronicity Procedures XR KNEE GENERAL 4V AP BOTH/PA BOTH/LAT/MERC LEFT RADIOLOGIC EXAM KNEE COMPLETE 4/MORE VIEWS Namita Samaniego PA-C [address] [place] [address] Xr Imaging Referral ID Status Reason Start Date Expiration Date V isits Requested Visits Authorized [id number] Closed Auto-Generate d Referral 01/12/2022 02/11/2023 1 1 [facility] for referral (narrative)* Outpatient Procedure (Routine) - Closed Specialty Diagnoses / Procedures Referred By Contac t Referred To Contact [facility] Diagnoses Costochondral chest pain Procedures ECG COMPLETE ECG ROUTINE ECG W/LEAST 12 LDS W/I&R Doris Rebolledo APRN.CNP [address] [place] [address] [facility] [address] [place] [address] Referral ID Status Reason Start Date Expiration Date V isits Requested Visits Authorized [id number] Closed Auto-Generate d Referral 03/30/2022 03/30/2023 1 1 [facility] for referral (narrative)* Diagnostic Procedure Only (Routine) - Pending Review Specialty Diagnoses / Procedures Referred By Daxa t Referred To Contact [facility] Diagnoses Encounter for screening mammogram for breast cancer Procedures JOSE DANIEL SCREENING W FERNANDO SCREENING DIGITAL BREAST TOMOSYNTHESIS BI SCREENING MAMMOGRAPHY BI 2-VIEW BREAST INC CAD Unruly Mcgrath DO [address] [place] [address] [facility] [address] [place] [address] Referral ID Status Reason Start Date Expiration Date Visits Requested Visits Authorized [id number] Pending Review Auto-Generat ed Referral 3 07/11/2024 1 1 [facility] for visit Narrative* Diagnostic Procedure Only (Routine) - Closed Specialty Diagnoses / Procedures Referred By Daxa t Referred To Contact XR IMAGING Diagnoses Left knee pain, unspecified chronicity Procedures XR KNEE GENERAL 4V AP BOTH/PA BOTH/LAT/MERC LEFT RADIOLOGIC EXAM KNEE COMPLETE 4/MORE VIEWS Namita Samaniego PA-C [address] [place] [address] Xr Imaging Referral ID Status Reason Start Date Expiration Date V isits Requested Visits Authorized [id number] Closed Auto-Generate d Referral 01/12/2022 02/11/2023 1 1 [facility] Advance Directives No Advanced Directives Records FoundDocuments on File Type Date Recorded 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 Advance Directive(s) Advance Directive(s) 12/15/2020 8:41 AM Advance Directive(s) 12/19/2016 8:55 AM Documents on File Type Date Recorded 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 Advance Directive(s) Advance Directive(s) 12/15/2020 8:41 AM Advance Directive(s) 12/19/2016 8:55 AM Reason for Referral Specialty Diagnoses / Procedures Referred By Contac t Referred To Contact Orthopedics Diagnoses Acute pain of left knee Procedures CONSULT TO ORTHOPAEDICS OFFICE/OUTPATIENT [facility] 60-74 MINUTES Unruly Mcgrath, DO [address] [place] [address] Referral ID Status Reason Start Date Expiration Date Visits Requested Visits Authorized [id number] Authorized PCP Requested Referral 12/21/2021 12/21/2022 1 1 Specialty Diagnoses / Procedures Referred By Contac t Referred To Contact Diagnoses Situational stress Situational anxiety Procedures CONSULT TO PSYCHIATRY OFFICE/OUTPATIENT [facility] 60-74 MINUTES Unruly Mcgrath, DO [address] [place] [address] Referral ID Status Reason Start Date Expiration Date Visits Requested Visits Authorized [id number] Pending Review PCP Requested Referral 2 04/17/2023 1 1 Specialty Diagnoses / Procedures Referred By Contac t Referred To Contact Diagnoses Asthma, exercise induced Viviane Christine PA-C [address] [place] [address] Referral ID Status Reason Start Date Expiration Date Visits Re quested Visits Authorized [id number] Closed 1 1 Summary Purpose Family History [...] or prosecute any alcohol or drug abuse patient.[facility] the event this information is protected by the Federal Confidentiality of Alcohol and Drug Abuse Patient Records regulations: The Federal rules restrict any use of the information to criminally investigate or prosecute any alcohol or drug abuse patient.[facility] the event this information is protected by the Federal Confidentiality of Alcohol and Drug Abuse Patient Records regulations: The Federal rules restrict any use of the information to criminally investigate or prosecute any alcohol or drug abuse patient.[facility] the event this information is protected by the Federal Confidentiality of Alcohol and Drug Abuse Patient Records regulations: The Federal rules restrict any use of the information to criminally investigate or prosecute any alcohol or drug abuse patient.[facility] the event this information is protected by the Federal Confidentiality of Alcohol and Drug Abuse Patient Records regulations: The Federal rules restrict any use of the information to criminally investigate or prosecute any alcohol or drug abuse patient.[facility] the event this information is protected by the Federal Confidentiality of Alcohol and Drug Abuse Patient Records regulations: The Federal rules restrict any use of the information to criminally investigate or prosecute any alcohol or drug abuse patient.[facility] the event this information is protected by the Federal Confidentiality of Alcohol and Drug Abuse Patient Records regulations: The Federal rules restrict any use of the information to criminally investigate or prosecute any alcohol or drug abuse patient.[facility] the event this information is protected by the Federal Confidentiality of Alcohol and Drug Abuse Patient Records regulations: The Federal rules restrict any use of the information to criminally investigate or prosecute any alcohol or drug abuse patient.[facility] the event this information is protected by the Federal Confidentiality of Alcohol and Drug Abuse Patient Records regulations: The Federal rules restrict any use of the information to criminally investigate or prosecute any alcohol or drug abuse patient.[facility] the event this information is protected by the Federal Confidentiality of Alcohol and Drug Abuse Patient Records regulations: The Federal rules restrict any use of the information to criminally investigate or prosecute any alcohol or drug abuse patient.[facility] the event this information is protected by the Federal Confidentiality of Alcohol and Drug Abuse Patient Records regulations: The Federal rules restrict any use of the information to criminally investigate or prosecute any alcohol or drug abuse patient.[facility] the event this information is protected by the Federal Confidentiality of Alcohol and Drug Abuse Patient Records regulations: The Federal rules restrict any use of the information to criminally investigate or prosecute any alcohol or drug abuse patient.[facility] the event this information is protected by the Federal Confidentiality of Alcohol and Drug Abuse Patient Records regulations: The Federal rules restrict any use of the information to criminally investigate or prosecute any alcohol or drug abuse patient.[facility] the event this information is protected by the Federal Confidentiality of Alcohol and Drug Abuse Patient Records regulations: The Federal rules restrict any use of the information to criminally investigate or prosecute any alcohol or drug abuse patient.[facility]In the event this information is protected by the Federal Confidentiality of Alcohol and Drug Abuse Patient Records regulations: The Federal rules restrict any use of the information to criminally investigate or prosecute any alcohol or drug abuse patient.[facility]In the event this information is protected by the Federal Confidentiality of Alcohol and Drug Abuse Patient Records regulations: The Federal rules restrict any use of the information to criminally investigate or prosecute any alcohol or drug abuse patient.[facility]In the event this information is protected by the Federal Confidentiality of Alcohol and Drug Abuse Patient Records regulations: The Federal rules restrict any use of the information to criminally investigate or prosecute any alcohol or drug abuse patient.[facility]In the event this information is protected by the Federal Confidentiality of Alcohol and Drug Abuse Patient Records regulations: The Federal rules restrict any use of the information to criminally investigate or prosecute any alcohol or drug abuse patient.[facility]In the event this information is protected by the Federal Confidentiality of Alcohol and Drug Abuse Patient Records regulations: The Federal rules restrict any use of the information to criminally investigate or prosecute any alcohol or drug abuse patient.[facility]In the event this information is protected by the Federal Confidentiality of Alcohol and Drug Abuse Patient Records regulations: The Federal rules restrict any use of the information to criminally investigate or prosecute any alcohol or drug abuse patient.[facility]In the event this information is protected by the Federal Confidentiality of Alcohol and Drug Abuse Patient Records regulations: The Federal rules restrict any use of the information to criminally investigate or prosecute any alcohol or drug abuse patient.[facility]In the event this information is protected by the Federal Confidentiality of Alcohol and Drug Abuse Patient Records regulations: The Federal rules restrict any use of the information to criminally investigate or prosecute any alcohol or drug abuse patient.[facility]In the event this information is protected by the Federal Confidentiality of Alcohol and Drug Abuse Patient Records regulations: The Federal rules restrict any use of the information to criminally investigate or prosecute any alcohol or drug abuse patient.[facility]In the event this information is protected by the Federal Confidentiality of Alcohol and Drug Abuse Patient Records regulations: The Federal rules restrict any use of the information to criminally investigate or prosecute any alcohol or drug abuse patient.[facility] Reason for Visit (unrecogniz ed section and content) Reason Comments Patient Question copied from [email or web address] Reason Comments New Knee Pain Specialty Diagnoses / Procedures Referred By Daxa chauhan Referred To Contact Orthopedics Diagnoses Acute pain of left knee Procedures CONSULT TO ORTHOPAEDICS OFFICE/OUTPATIENT NEW HIGH MDM 60-74 MINUTES Unruly Mcgrath, DO [address] [place] [address] Referral ID Status Reason Start Date Expiration Date V isits Requested Visits Authorized [id number] Closed PCP Requested Referral 12/21/2021 12/21/2022 1 [...] Care Teams (unrecognized sec tion and content) [employer] Relationship Specialty Start Date End Date Unruly Mcgrath, DO [address] [place], [place] [id number] PCP - General Family Practice 04/27/15 [employer] Relationship Specialty Start Date End Date Unruly Mcgrath DO [address] [place], [place] [address] PCP - General Family Practice 04/27/15 [employer] Relationship Specialty Start Date End Date Unruly Mcgrath, DO [address] [place], [place] [address] PCP - General Family Practice 04/27/15 [employer] Relationship Specialty Start Date End Date Unruly Mcgrath DO [address] [place] [address] PCP - General Family Practice 04/27/15 [employer] Relationship Specialty Start Date End Date Unruly Mcgrath, DO [address] [place] [address] PCP - General Family Practice 04/27/15 [employer] Relationship Specialty Start Date End Date Unruly Mcgrath, DO [address] [place] [address] PCP - General Family Medicine 04/27/15 [employer] Relationship Specialty Start Date End Date Unruly Mcgrath, DO [address] [place] [address] PCP - General Family Medicine 04/27/15 [employer] Relationship Specialty Start Date End Date Unruly Mcgrath, DO [address] [place] [address] PCP - General Family Medicine 04/27/15 [employer] Relationship Specialty Start Date End Date Unruly Mcgrath, DO [address] [place] [address] PCP - General Family Medicine 04/27/15 [employer] Relationship Specialty Start Date End Date Unruly Mcgrath, DO [address] [place] [address] PCP - General Family Medicine 04/27/15 [employer] Relationship Specialty Start Date End Date Unruly Mcgrath, DO [address] [place] [address] PCP - General Family Medicine 04/27/15 [employer] Relationship Specialty Start Date End Date Unruly Mcgrath, DO [address] [place] [address] PCP - General Family Medicine 04/27/15 [employer] Relationship Specialty Start Date End Date Unruly Mcgrath DO [address] [place] [address] PCP - General Family Medicine 04/27/15 [employer]er [employer] Relationship Specialty Start Date End Date Unruly Mcgrath DO [address] [place] [address] PCP - General Family Medicine 04/27/15 [employer] Relationship Specialty Start Date End Date Unruly Mcgrath DO [address] [place] [address] PCP - General Family Medicine 04/27/15 As[employer]er [employer] Relationship Specialty Start Date End Date Unruly Mcgrath DO [address] [place] [address] PCP - General Family Medicine 04/27/15 As[employer]er [employer] Relationship Specialty Start Date End Date Unruly Mcgrath DO [address] [place] [address] PCP - General Family Medicine 04/27/15 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 [facility] provides no warranty or guarantee of the accuracy or completeness of information in this document.
== END | disposition home or self-care (01) ==
LOC: OPBI 09:21
PROVIDERS: PCP Student in an Organized Health Care Education/Training Program; Referring Provider Obstetrics & Gynecology; Visit Provider Obstetrics & Gynecology
DX: R92.30 Dense breasts, unspecified (principal)
CPT/HCPCS: 77065